=== PATIENT | female | born 1955 | race Caucasian/White ===

== ENCOUNTER → 2016-09-05 | Outpatient (CLI) | payer BC, OTHER ==
[2016-09-05 14:50] LABS: ALANINE AMINOTRANSFERASE 34 U/L (9-52); ALBUMIN 4.6 g/dL (3.5-5.0); ALKALINE PHOSPHATASE 40 U/L (38-126); ANION GAP 10 (5-19); ASPARTATE AMINO TRANSFERASE 26 U/L (14-36); BILIRUBIN,TOTAL 0.5 mg/dL (0.2-1.3); BLOOD UREA NITROGEN 17 mg/dL (7-20); CALCIUM 9.8 mg/dL (8.4-10.2); CARBON DIOXIDE 30 mmol/L (22-30); CHLORIDE 102 mmol/L (98-107); CREATININE RESULT 0.78 mg/dL (0.52-1.25); GLUCOSE 111 mg/dL (75-110); POTASSIUM 4.1 mmol/L (3.6-5.0); SODIUM 142.4 mmol/L (137-145); TOTAL PROTEIN 7.6 g/dL (6.3-8.2)
[2016-09-07 11:25] LABS: HEMATOCRIT 41.8 % (36.0-47.0); HEMOGLOBIN 14.2 g/dL (12.0-15.5); HGB HCT DIFFERENCE 0.8; MEAN CORPUSCULAR VOLUME 91 fl (80-97); RED BLOOD COUNT 4.59 10^6/uL (3.72-5.28); WHITE BLOOD COUNT 7.2 10^3/uL (4.0-10.5)
[2016-09-07 11:26] LABS: MEAN CORPUSCULAR HEMOGLOBIN 30.9 pg (27.0-33.4); RED CELL DISTRIBUTION WIDTH 12.8 % (11.5-14.0)
== END ==
LOC: LAB 13:48
PROVIDERS: ATTEND Internal Medicine
DX: D50.8 Other iron deficiency anemias (principal)
CPT/HCPCS: 36415; 80053; 82607; 82728; 83540; 83550; 85025; 85027

== ENCOUNTER → 2016-11-22 | Outpatient (CLI) | payer BC, OTHER ==
[2016-11-22 06:58] LABS: ALANINE AMINOTRANSFERASE 36 U/L (9-52); ALBUMIN 4.1 g/dL (3.5-5.0); ALKALINE PHOSPHATASE 33 U/L (38-126); ANION GAP 11 (5-19); ASPARTATE AMINO TRANSFERASE 25 U/L (14-36); BILIRUBIN,DIRECT 0.2 mg/dL (0.0-0.4); BILIRUBIN,TOTAL 0.5 mg/dL (0.2-1.3); BLOOD UREA NITROGEN 17 mg/dL (7-20); CARBON DIOXIDE 30 mmol/L (22-30); CHLORIDE 103 mmol/L (98-107); CHOLESTEROL 196.18 mg/dL (0-200); CREATININE RESULT 0.65 mg/dL (0.52-1.25); Direct HDL 53 mg/dL (>40); GLUCOSE 103 mg/dL (75-110); POTASSIUM 4.1 mmol/L (3.6-5.0); SODIUM 144.1 mmol/L (137-145); TOTAL PROTEIN 6.8 g/dL (6.3-8.2); TRIGLYCERIDES 136 mg/dL (<150)
[2016-11-22 07:10] LABS: DIRECT LDL 103 mg/dL (<100)
== END ==
LOC: LAB 06:27
PROVIDERS: ATTEND Internal Medicine
DX: E55.9 Vitamin D deficiency, unspecified (principal); I10 Essential (primary) hypertension; E78.2 Mixed hyperlipidemia; E11.9 Type 2 diabetes mellitus without complications
CPT/HCPCS: 36415; 80053; 80061; 82306; 83036

== ENCOUNTER → 2017-02-05 | Outpatient (CLI) | payer BC, OTHER ==
--- NOTE | 2017-02-13 23:37 | WOMENS IMAGING REPORT ---
EXAM DESCRIPTION: LEFT DIAGNOSTIC MAMMO W/CAD; U/S BREAST UNILAT LIMITED COMPLETED DATE/TIME: 02/05/2017 10:27 am; 02/05/2017 11:03 am REASON FOR STUDY: LUMP IN L BREAST N63; LT BREAST N63 N63 UNSPECIFIED LUMP IN BREAST COMPARISON: 01/10/2017 and 09/12/2015 and 09/10/2014. TECHNIQUE: Additional images include a true lateral view and spot compression lateral and CC views. LIMITATIONS: None. FINDINGS: BREAST: left MASSES: Small oval circumscribed nodule in the deep breast adjacent to the pectoral muscle. Due to i ts deep position, this nodule is difficult to visualize on CC imaging but is demonstrated on the orig inal exaggerated CCL mammogram. On compression views and on the original tomosynthesis images, this nodule is well-circumscribed with smooth borders. There is associated coarse calcification. CALCIFICATIONS: No new or suspicious calcifications. ARCHITECTURAL DISTORTION: None. DEVELOPING DENSITY: None. ASYMMETRY: None noted. OTHER: No other significant findings. BREAST ULTRASOUND: TECHNIQUE: Static and dynamic grayscale images acquired of the left breast in the specific areas of c linical/mammographic concern. Selected color Doppler images recorded. ELASTOGRAPHY PERFORMED: No. LIMITATIONS: None. FINDINGS: MASS: 4 x 6 x 7 mm nodule in the deep breast at the 10-11 o'clock position. This has smooth borders with no significant distal shadowing. A central calcification is demonstrated. ELASTOGRAPHY CHARACTERISTICS: Not applicable. OTHER: No other significant finding. IMPRESSION: Small circumscribed nodule in the deep breast as described which has fairly smooth borde rs with no definitive worrisome characteristics. This may be a small lymph node. On review of numer ous previous mammograms, this nodule was not demonstrated. Some of this may be due to the deep locat ion and difficulty in imaging or the nodule may have slowly developed. In any case, would recommend a short-term interval followup. BREAST DENSITY: b. There are scattered areas of fibroglandular density. BIRAD: 3 Probably benign finding. Initial short-interval follow-up suggested. RECOMMENDATION: RECOMMENDED FOLLOW UP: Birads 3: The patient will return in 6 months for follow-up i petra. SPECIFIC INTERVENTION/IMAGING/CONSULTATION RECOMMENDED:The patient will return for 6 month follow-up diagnostic mammography(tomosynthesis) and targeted breast ultrasound. COMMUNICATION:The imaging findings were not discussed with the patient. Her referring provider will b e notified of the findings. COMMENT: The patient has been notified of the results by letter per [place] requirements. Additional no tification policies are in place for contacting patient with suspicious or incomplete findings. Quality ID #225: The [employer] recommends an annual screening mammogram for women aged 40 years or over. This facility utilizes a reminder system to ensure that all patients receive reminder letters, and/or direct phone calls for appointments. This includes reminders for routine scr eening mammograms, diagnostic mammograms, or other Breast Imaging Interventions when appropriate. Th is patient will be placed in the appropriate reminder system. The [employer] (ACR) has developed recommendations for screening MRI of the breast s in certain patient populations, to be used in conjunction with mammography. Breast MRI surveillanc e may be appropriate for women with more than 20% lifetime risk of developing breast cancer as deter mined by genetic testing, significant family history of the disease, or history of mantle radiation f or Hodgkins Disease. ACR Practice Guidelines 2008. TECHNICAL DOCUMENTATION: FINDING NUMBER: (1) ASSESSMENT: (1) JOB ID: [id number] [employer]- All Rights Reserved
== END ==
LOC: WI 10:13 → EDSTATUS 15:51
PROVIDERS: ATTEND Internal Medicine
DX: N63 Unspecified lump in breast (principal)
CPT/HCPCS: 76642; G0206

== ENCOUNTER → 2017-02-28 | Outpatient (CLI) | payer BC, OTHER ==
[2017-02-28 07:07] LABS: ABSOLUTE EOSINOPHILS # (AUTO) 0.2 10^3/uL (0.0-0.6); ABSOLUTE LYMPHOCYTES (AUTO) 1.6 10^3/uL (0.5-4.7); ABSOLUTE MONOCYTES (AUTO) 0.4 10^3/uL (0.1-1.4); ABSOLUTE NEUT (AUTO) 2.6 10^3/uL (1.7-8.2); BASOPHILS % (AUTO) 0.7 % (0-2); EOSINOPHILS % (AUTO) 3.2 % (0-6); HEMATOCRIT 40.7 % (36.0-47.0); HGB HCT DIFFERENCE 1.3; LYMPHOCYTES % (AUTO) 33.9 % (13-45); MEAN CORPUSCULAR HEMOGLOBIN 30.9 pg (27.0-33.4); MEAN CORPUSCULAR HGB CONC 34.5 g/dL (32.0-36.0); MEAN CORPUSCULAR VOLUME 90 fl (80-97); MONOCYTES % (AUTO) 8.5 % (3-13); RED BLOOD COUNT 4.53 10^6/uL (3.72-5.28); RED CELL DISTRIBUTION WIDTH 13.1 % (11.5-14.0); SEGMENTED NEUTROPHILS % (AUTO) 53.7 % (42-78); WHITE BLOOD COUNT 4.8 10^3/uL (4.0-10.5)
[2017-02-28 07:31] LABS: ALANINE AMINOTRANSFERASE 37 U/L (9-52); ALBUMIN 4.2 g/dL (3.5-5.0); ALKALINE PHOSPHATASE 34 U/L (38-126); ANION GAP 10 (5-19); ASPARTATE AMINO TRANSFERASE 25 U/L (14-36); BILIRUBIN,DIRECT 0.3 mg/dL (0.0-0.4); BILIRUBIN,TOTAL 0.6 mg/dL (0.2-1.3); BLOOD UREA NITROGEN 17 mg/dL (7-20); CALCIUM 9.2 mg/dL (8.4-10.2); CARBON DIOXIDE 28 mmol/L (22-30); CHLORIDE 105 mmol/L (98-107); CREATININE RESULT 0.61 mg/dL (0.52-1.25); GLUCOSE 103 mg/dL (75-110); POTASSIUM 4.1 mmol/L (3.6-5.0); SODIUM 142.7 mmol/L (137-145); TOTAL PROTEIN 7.3 g/dL (6.3-8.2)
[2017-03-01 09:30] LABS: ADD ON TESTING BLD IN LAB ACKNOWLEDGE
== END ==
LOC: LAB 06:35
PROVIDERS: ATTEND Internal Medicine
DX: D50.8 Other iron deficiency anemias (principal)
CPT/HCPCS: 36415; 80053; 82607; 82728; 83540; 83550; 85025

== ENCOUNTER → 2017-04-30 | Outpatient (CLI) | payer BC, OTHER ==
[2017-04-30 08:27] LABS: ABSOLUTE EOSINOPHILS # (AUTO) 0.1 10^3/uL (0.0-0.6); ABSOLUTE LYMPHOCYTES (AUTO) 1.4 10^3/uL (0.5-4.7); ABSOLUTE MONOCYTES (AUTO) 0.3 10^3/uL (0.1-1.4); ABSOLUTE NEUT (AUTO) 2.4 10^3/uL (1.7-8.2); BASOPHILS % (AUTO) 0.8 % (0-2); HEMATOCRIT 40.9 % (36.0-47.0); HEMOGLOBIN 14.2 g/dL (12.0-15.5); HGB HCT DIFFERENCE 1.7; LYMPHOCYTES % (AUTO) 33.2 % (13-45); MEAN CORPUSCULAR HEMOGLOBIN 31.4 pg (27.0-33.4); MEAN CORPUSCULAR HGB CONC 34.7 g/dL (32.0-36.0); MEAN CORPUSCULAR VOLUME 91 fl (80-97); MONOCYTES % (AUTO) 7.3 % (3-13); RED BLOOD COUNT 4.52 10^6/uL (3.72-5.28); RED CELL DISTRIBUTION WIDTH 12.9 % (11.5-14.0); SEGMENTED NEUTROPHILS % (AUTO) 55.7 % (42-78); WHITE BLOOD COUNT 4.3 10^3/uL (4.0-10.5)
[2017-04-30 09:05] LABS: ALANINE AMINOTRANSFERASE 44 U/L (9-52); ALBUMIN 4.4 g/dL (3.5-5.0); ALKALINE PHOSPHATASE 34 U/L (38-126); ANION GAP 11 (5-19); ASPARTATE AMINO TRANSFERASE 31 U/L (14-36); BILIRUBIN,DIRECT 0.3 mg/dL (0.0-0.4); BILIRUBIN,TOTAL 0.5 mg/dL (0.2-1.3); BLOOD UREA NITROGEN 15 mg/dL (7-20); CALCIUM 9.4 mg/dL (8.4-10.2); CARBON DIOXIDE 35 mmol/L (22-30); CHLORIDE 101 mmol/L (98-107); CHOLESTEROL 215.98 mg/dL (0-200); CREATININE RESULT 0.72 mg/dL (0.52-1.25); Direct HDL 60 mg/dL (>40); GLUCOSE 121 mg/dL (75-110); POTASSIUM 4.7 mmol/L (3.6-5.0); SODIUM 146.5 mmol/L (137-145); TOTAL PROTEIN 7.4 g/dL (6.3-8.2); TRIGLYCERIDES 119 mg/dL (<150)
[2017-04-30 09:16] LABS: DIRECT LDL 136 mg/dL (<100)
[2017-05-01 06:39] LABS: HEPATITIS C VIRUS AB <0.1 s/co ratio (0.0-0.9)
[2017-05-01 13:11] LABS: VITAMIN D 25-HYDROXY 30.7 ng/mL (30.0-100.0)
== END ==
LOC: OD 07:09
PROVIDERS: ATTEND Internal Medicine
DX: I10 Essential (primary) hypertension (principal); E66.01 Morbid (severe) obesity due to excess calories; Z12.11 Encounter for screening for malignant neoplasm of colon; D50.0 Iron deficiency anemia secondary to blood loss (chronic); E78.2 Mixed hyperlipidemia; E55.9 Vitamin D deficiency, unspecified; Z20.89 Contact with and (suspected) exposure to other communicable diseases
CPT/HCPCS: 36415; 80053; 80061; 82043; 82272; 82306; 83036; 84443; 85025; 86803; 86804

== ENCOUNTER → 2017-07-25 | Outpatient (CLI) | payer BC, OTHER ==
--- NOTE | 2017-07-25 17:30 | WOMENS IMAGING REPORT ---
EXAM DESCRIPTION: 3D DX MAMMO LEFT UNILAT; U/S BREAST UNILAT LIMITED COMPLETED DATE/TIME: 07/25/2017 9:28 am; 07/25/2017 9:40 am REASON FOR STUDY: LEFT BREAST LUMP; LEFT BREAST N63.20 UNSPECIFIED LUMP IN THE LEFT BREAST, UNSPECI FIED QUAD COMPARISON: Multiple since 2008 TECHNIQUE: Compression magnification craniocaudal and mediolateral oblique images of the breast emilie rded using digital acquisition and breast tomosynthesis. Left breast craniocaudad, MLO, and 90 mediolateral tomosynthesis were also obtained. Left breast ultrasound was also performed. LIMITATIONS: None. FINDINGS: BREAST: Left MASSES: No suspicious masses. A tiny intramammary lymph node is present in the far upper outer quadr ant, similar compared to the exam 02/05/2017 CALCIFICATIONS: No new or suspicious calcifications. ARCHITECTURAL DISTORTION: None. DEVELOPING DENSITY: None. ASYMMETRY: None noted. OTHER: No other significant findings. Read with the assistance of CAD. .[facility] - R2 Cenova Version 1.3 .[facility] Imaging - R2 Cenova Version 1.3 .[facility] Imaging - R2 Cenova Version 2.4 .[facility] - R2 Cenova Version 2.4 .[facility] - R2 Take Up Operator Version 9.2 Ultrasound left breast: Ultrasound of the far upper outer quadrant demonstrates benign intramammary lymph nodes in the far up per outer quadrant, less than 5 mm size. These are similar compared to that the from 02/05/2017 IMPRESSION: No mammographic or sonographic evidence for malignancy left breast BREAST DENSITY: b. There are scattered areas of fibroglandular density. BIRAD: 2 Benign findings. RECOMMENDATION: RECOMMENDED FOLLOW UP: Please continue yearly bilateral screening mammography/ tomos ynthesis in January 2018 SPECIFIC INTERVENTION/IMAGING/CONSULTATION RECOMMENDED:No additional intervention/ imaging/consultati on needed at this time. COMMUNICATION:Patient notified by letter COMMENT: The patient has been notified of the results by letter per MQSA requirements. Additional no tification policies are in place for contacting patient with suspicious or incomplete findings. Quality ID #225: The [employer] recommends an annual screening mammogram for women aged 40 years or over. This facility utilizes a reminder system to ensure that all patients receive reminder letters, and/or direct phone calls for appointments. This includes reminders for routine scr eening mammograms, diagnostic mammograms, or other Breast Imaging Interventions when appropriate. Th is patient will be placed in the appropriate reminder system. The [employer] (ACR) has developed recommendations for screening MRI of the breast s in certain patient populations, to be used in conjunction with mammography. Breast MRI surveillanc e may be appropriate for women with more than 20% lifetime risk of developing breast cancer as deter mined by genetic testing, significant family history of the disease, or history of mantle radiation f or Hodgkins Disease. ACR Practice Guidelines 2008. DBT Technology DBT is a type of tomographic mammography. With conventional mammography, overlapping breast tissue ma y make lesions difficult to detect, even with good compression. DBT uses an x-ray tube that rotates a round the breast, taking images at different angles. These images are then combined to create thin sl ices of the breast that the radiologist can view as a 3D reconstruction. The [employer] unit can perform full-field digital mammograms (2D imaging); or DBT (3D imaging); or both, in a combination mode that quickly performs both the mammogram and the tomosynthesis scan while the breast is still compressed. PQRS 6045F: Fluoroscopic imaging is not utilized for breast tomosynthesis. TECHNICAL DOCUMENTATION: FINDING NUMBER: (1) ASSESSMENT: (1) JOB ID: [id number] [employer]- All Rights Reserved
--- NOTE | 2017-07-25 17:30 | WOMENS IMAGING REPORT ---
EXAM DESCRIPTION: 3D DX MAMMO LEFT UNILAT; U/S BREAST UNILAT LIMITED COMPLETED DATE/TIME: 07/25/2017 9:28 am; 07/25/2017 9:40 am REASON FOR STUDY: LEFT BREAST LUMP; LEFT BREAST N63.20 UNSPECIFIED LUMP IN THE LEFT BREAST, UNSPECI FIED QUAD COMPARISON: Multiple since 2008 TECHNIQUE: Compression magnification craniocaudal and mediolateral oblique images of the breast emilie rded using digital acquisition and breast tomosynthesis. Left breast craniocaudad, MLO, and 90 mediolateral tomosynthesis were also obtained. Left breast ultrasound was also performed. LIMITATIONS: None. FINDINGS: BREAST: Left MASSES: No suspicious masses. A tiny intramammary lymph node is present in the far upper outer quadr ant, similar compared to the exam 02/05/2017 CALCIFICATIONS: No new or suspicious calcifications. ARCHITECTURAL DISTORTION: None. DEVELOPING DENSITY: None. ASYMMETRY: None noted. OTHER: No other significant findings. Read with the assistance of CAD. .[facility] - R2 Cenova Version 1.3 .[facility] Imaging - R2 Cenova Version 1.[address] .[facility] Imaging - R2 Cenova Version 2.4 .[facility] [place] - R2 Cenova Version 2.4 .[facility] - R2 Spice Cleaner Version 9.2 Ultrasound left breast: Ultrasound of the far upper outer quadrant demonstrates benign intramammary lymph nodes in the far up per outer quadrant, less than 5 mm size. These are similar compared to that the from 02/05/2017 IMPRESSION: No mammographic or sonographic evidence for malignancy left breast BREAST DENSITY: b. There are scattered areas of fibroglandular density. BIRAD: 2 Benign findings. RECOMMENDATION: RECOMMENDED FOLLOW UP: Please continue yearly bilateral screening mammography/ tomos ynthesis in January 2018 SPECIFIC INTERVENTION/IMAGING/CONSULTATION RECOMMENDED:No additional intervention/ imaging/consultati on needed at this time. COMMUNICATION:Patient notified by letter COMMENT: The patient has been notified of the results by letter per MQSA requirements. Additional no tification policies are in place for contacting patient with suspicious or incomplete findings. Quality ID #225: The [employer] recommends an annual screening mammogram for women aged 40 years or over. This facility utilizes a reminder system to ensure that all patients receive reminder letters, and/or direct phone calls for appointments. This includes reminders for routine scr eening mammograms, diagnostic mammograms, or other Breast Imaging Interventions when appropriate. Th is patient will be placed in the appropriate reminder system. The [employer] (ACR) has developed recommendations for screening MRI of the breast s in certain patient populations, to be used in conjunction with mammography. Breast MRI surveillanc e may be appropriate for women with more than 20% lifetime risk of developing breast cancer as deter mined by genetic testing, significant family history of the disease, or history of mantle radiation f or Hodgkins Disease. ACR Practice Guidelines 2008. DBT Technology DBT is a type of tomographic mammography. With conventional mammography, overlapping breast tissue ma y make lesions difficult to detect, even with good compression. DBT uses an x-ray tube that rotates a round the breast, taking images at different angles. These images are then combined to create thin sl ices of the breast that the radiologist can view as a 3D reconstruction. The [employer] unit can perform full-field digital mammograms (2D imaging); or DBT (3D imaging); or both, in a combination mode that quickly performs both the mammogram and the tomosynthesis scan while the breast is still compressed. PQRS 6045F: Fluoroscopic imaging is not utilized for breast tomosynthesis. TECHNICAL DOCUMENTATION: FINDING NUMBER: (1) ASSESSMENT: (1) JOB ID: [id number] [employer]- All Rights Reserved
== END ==
LOC: WI 08:40
PROVIDERS: ATTEND Internal Medicine
DX: N63.20 Unspecified lump in the left breast, unspecified quadrant (principal)
CPT/HCPCS: 76642

== ENCOUNTER → 2017-08-05 | Outpatient (CLI) | payer BC, OTHER ==
[2017-08-05 06:58] LABS: ALANINE AMINOTRANSFERASE 34 U/L (9-52); ALBUMIN 4.3 g/dL (3.5-5.0); ALKALINE PHOSPHATASE 31 U/L (38-126); ANION GAP 10 (5-19); ASPARTATE AMINO TRANSFERASE 24 U/L (14-36); BILIRUBIN,DIRECT 0.2 mg/dL (0.0-0.4); BILIRUBIN,TOTAL 0.3 mg/dL (0.2-1.3); BLOOD UREA NITROGEN 13 mg/dL (7-20); CALCIUM 9.2 mg/dL (8.4-10.2); CARBON DIOXIDE 30 mmol/L (22-30); CHLORIDE 103 mmol/L (98-107); CHOLESTEROL 206.77 mg/dL (0-200); GLUCOSE 117 mg/dL (75-110); SODIUM 142.9 mmol/L (137-145); TOTAL PROTEIN 7.2 g/dL (6.3-8.2); TRIGLYCERIDES 86 mg/dL (<150)
[2017-08-05 07:09] LABS: DIRECT LDL 131 mg/dL (<100)
== END ==
LOC: LAB 06:21
PROVIDERS: ATTEND Internal Medicine
DX: E78.2 Mixed hyperlipidemia (principal)
CPT/HCPCS: 36415; 80053; 80061

== ENCOUNTER → 2017-08-29 | Outpatient (CLI) | payer BC, OTHER ==
[2017-08-29 08:47] LABS: ABSOLUTE EOSINOPHILS # (AUTO) 0.2 10^3/uL (0.0-0.6); ABSOLUTE LYMPHOCYTES (AUTO) 1.8 10^3/uL (0.5-4.7); ABSOLUTE MONOCYTES (AUTO) 0.4 10^3/uL (0.1-1.4); ABSOLUTE NEUT (AUTO) 2.2 10^3/uL (1.7-8.2); BASOPHILS % (AUTO) 0.4 % (0-2); HEMATOCRIT 40.7 % (36.0-47.0); LYMPHOCYTES % (AUTO) 38.9 % (13-45); MEAN CORPUSCULAR HEMOGLOBIN 30.4 pg (27.0-33.4); MEAN CORPUSCULAR HGB CONC 34.5 g/dL (32.0-36.0); MEAN CORPUSCULAR VOLUME 88 fl (80-97); MONOCYTES % (AUTO) 7.9 % (3-13); PLATELET COUNT 225 10^3/uL (150-450); RED CELL DISTRIBUTION WIDTH 12.6 % (11.5-14.0); SEGMENTED NEUTROPHILS % (AUTO) 48.8 % (42-78); TOTAL CELLS COUNTED % (AUTO) 100 %; WHITE BLOOD COUNT 4.5 10^3/uL (4.0-10.5)
[2017-08-29 09:09] LABS: ALANINE AMINOTRANSFERASE 39 U/L (9-52); ALBUMIN 4.3 g/dL (3.5-5.0); ALKALINE PHOSPHATASE 28 U/L (38-126); ANION GAP 9 (5-19); ASPARTATE AMINO TRANSFERASE 33 U/L (14-36); BILIRUBIN,DIRECT 0.1 mg/dL (0.0-0.4); BILIRUBIN,TOTAL 0.2 mg/dL (0.2-1.3); BLOOD UREA NITROGEN 13 mg/dL (7-20); CALCIUM 9.1 mg/dL (8.4-10.2); CARBON DIOXIDE 32 mmol/L (22-30); CHLORIDE 103 mmol/L (98-107); GLUCOSE 95 mg/dL (75-110); IRON(TIBC) 100.6 ug/dL (37-170); POTASSIUM 4.5 mmol/L (3.6-5.0); TOTAL PROTEIN 7.1 g/dL (6.3-8.2)
== END ==
LOC: OD 07:37
PROVIDERS: ATTEND Internal Medicine
DX: D50.8 Other iron deficiency anemias (principal)
CPT/HCPCS: 36415; 80053; 82607; 82728; 83540; 83550; 85025

== ENCOUNTER → 2018-01-29 | Outpatient (CLI) | payer BC, OTHER ==
[2018-01-29 08:21] LABS: ABSOLUTE EOSINOPHILS # (AUTO) 0.2 10^3/uL (0.0-0.6); ABSOLUTE LYMPHOCYTES (AUTO) 1.6 10^3/uL (0.5-4.7); ABSOLUTE MONOCYTES (AUTO) 0.4 10^3/uL (0.1-1.4); ABSOLUTE NEUT (AUTO) 2.7 10^3/uL (1.7-8.2); BASOPHILS % (AUTO) 0.6 % (0-2); EOSINOPHILS % (AUTO) 3.2 % (0-6); HEMATOCRIT 40.9 % (36.0-47.0); MEAN CORPUSCULAR HEMOGLOBIN 30.9 pg (27.0-33.4); MEAN CORPUSCULAR HGB CONC 34.3 g/dL (32.0-36.0); MEAN CORPUSCULAR VOLUME 90 fl (80-97); MONOCYTES % (AUTO) 8.6 % (3-13); PLATELET COUNT 207 10^3/uL (150-450); RED BLOOD COUNT 4.55 10^6/uL (3.72-5.28); SEGMENTED NEUTROPHILS % (AUTO) 54.6 % (42-78); TOTAL CELLS COUNTED % (AUTO) 100 %; WHITE BLOOD COUNT 4.9 10^3/uL (4.0-10.5)
[2018-01-29 08:39] LABS: ALANINE AMINOTRANSFERASE 30 U/L (9-52); ALKALINE PHOSPHATASE 28 U/L (38-126); ANION GAP 9 (5-19); ASPARTATE AMINO TRANSFERASE 25 U/L (14-36); BILIRUBIN,DIRECT 0.2 mg/dL (0.0-0.4); BILIRUBIN,TOTAL 0.5 mg/dL (0.2-1.3); BLOOD UREA NITROGEN 12 mg/dL (7-20); CALCIUM 8.8 mg/dL (8.4-10.2); CARBON DIOXIDE 33 mmol/L (22-30); CHLORIDE 105 mmol/L (98-107); GLUCOSE 112 mg/dL (75-110); POTASSIUM 4.5 mmol/L (3.6-5.0); SODIUM 146.6 mmol/L (137-145); TRIGLYCERIDES 85 mg/dL (<150)
[2018-01-29 08:50] LABS: DIRECT LDL 113 mg/dL (<100)
== END ==
LOC: OD 07:35
PROVIDERS: ATTEND Internal Medicine
DX: E78.2 Mixed hyperlipidemia (principal); E11.9 Type 2 diabetes mellitus without complications; D50.0 Iron deficiency anemia secondary to blood loss (chronic)
CPT/HCPCS: 36415; 80053; 80061; 82728; 83036; 85025

== ENCOUNTER 2018-04-17 09:18 | Day surgery (SDC) | payer BC, OTHER ==
[~2018-04-17 09:18] MED LIST: CHONDR SU A NA/HYALUR INTRAOC KIT (SURGICARE) ONE; EPINEPHRINE INJ/PF 1 MG/1 ML AMPULE ONE; KETOROLAC TROMETHAMINE 0.45% 4 DROP/0.4 ML DROPERETTE OD PRN; LIDOCAINE 1%/PHENYLEPHRINE 1.5% 1 ML VIAL ONE
[2018-04-17] MEDS: TETRACAINE HCL 0.5% OPH SOLN 4 ML OD PRN ×3 (09:41→10:14)
[2018-04-17] MEDS: TROPICAMIDE 1% OPH SOLN 3 ML OD PRN ×3 (09:42→10:07)
[2018-04-17] MEDS: CYCLOPENTOLATE 0.2%/PHENYLEPHRINE 1% OPH SOLN 2 ML OD PRN ×3 (09:42→10:07)
[2018-04-17] MEDS: BESIFLOXACIN HCL 0.6% OPH SUSP 5 ML BOTTLE OD PRN ×4 (09:43→10:33)
[2018-04-17] MEDS ORDERED: MIDAZOLAM 2 MG/2 ML INJ ONE (09:56)
[2018-04-17] MEDS ORDERED: FENTANYL CITRATE INJ/PF 100 MCG/2 ML AMPUL ONE (09:56)
--- NOTE | 2018-04-17 19:36 | [facility] DISCHARGE SUMMARY E ---
[facility] Discharge Summary NAME: ALFREDO MORELAND AGE: 62Y ADMITTED: 04/17/2018 DISCHARGED: The patient is a 62-year-old female who underwent cataract extraction of the right eye. DIAGNOSIS: Cataract, right eye. She underwent surgery because she had narrow angles and she also has trouble seeing the computer. DISCHARGE INSTRUCTIONS: She should be on a regular diet. No bending at the waist, no heavy lifting. She should use her Besivance, Ilevro, and Durezol at 3:00 p.m. and 8:00 p.m. and sleep with a rigid shield. I will see her for her 1-day postoperative tomorrow. DICTATING PHYSICIAN: ELVIA DENNIS M.D. [id number] PHY#: [id number] ID: [id number] JOB#: [id number] ACCT: [id number] cc:ELVIA DENNIS M.D. >
--- NOTE | 2018-04-17 19:36 | [facility] OPERATIVE REPORT E ---
[facility] Operative Report NAME: ALFREDO MORELAND AGE: 62Y DATE OF SURGERY: 04/17/2018 ROOM: PREOPERATIVE DIAGNOSIS: CATARACT, RIGHT EYE. POSTOPERATIVE DIAGNOSIS: CATARACT, RIGHT EYE. OPERATION: Cataract extraction with insertion of an IOL of the right eye. SURGEON: ELVIA DENNIS M.D. ANESTHESIA: Topical. PROCEDURE: After obtaining appropriate consent, the patient's right eye was prepped and draped in sterile fashion as well as the surgeon in a sterile manner and cataract surgery was started. First a paracentesis blade was used to make a side-port incision. Viscoelastic was used to inflate the anterior chamber. Next a 2.4 mm incision was made with a 2.4 mm blade, clear corneal temporally. A continuous capsulorrhexis was made using a cystotome and Utrata forceps. Following this hydrodissection was carried out to make the lens fully loose and mobile and it was rotated 90 degrees. Following this, a xzljpk-zmx-prvaeiy technique was used to phacoemulsify the lens with a CDE of 5.20. The remaining cortex was removed with irrigation/aspiration. Provisc was instilled into the capsular bag to inflate the bag. A SN60WF, 27.5 diopter lens was placed. The remaining viscoelastic material was removed with irrigation/aspiration. Following this, the incision was found to be watertight. Besivance was instilled into the eye and a protective shield was placed over the eye. The patient returned to the postoperative recovery in stable condition. DICTATING PHYSICIAN: ELVIA DENNIS M.D. [id number] PHY#: [id number] ID: [id number] JOB#: [id number] ACCT: [id number] cc:ELVIA DENNIS M.D. >
== END 2018-04-17 11:14 | disposition home or self-care (01) ==
LOC: SC 09:18
PROVIDERS: ATTEND Internal Medicine
DX: H25.11 Age-related nuclear cataract, right eye (principal); I10 Essential (primary) hypertension; K21.9 Gastro-esophageal reflux disease without esophagitis; Z79.899 Other long term (current) drug therapy
CPT/HCPCS: 66984; V2632; J2250; J3490 ×2; J0171; J3010; J2370; 142

== ENCOUNTER → 2018-07-30 | Outpatient (CLI) | payer BC, OTHER ==
[2018-07-30 10:05] LABS: ALANINE AMINOTRANSFERASE 27 U/L (9-52); ALBUMIN 4.3 g/dL (3.5-5.0); ALKALINE PHOSPHATASE 32 U/L (38-126); ANION GAP 8 (5-19); ASPARTATE AMINO TRANSFERASE 28 U/L (14-36); BILIRUBIN,DIRECT 0.3 mg/dL (0.0-0.4); BILIRUBIN,TOTAL 0.4 mg/dL (0.2-1.3); BLOOD UREA NITROGEN 17 mg/dL (7-20); CALCIUM 9.2 mg/dL (8.4-10.2); CARBON DIOXIDE 31 mmol/L (22-30); CHLORIDE 103 mmol/L (98-107); CHOLESTEROL 178.84 mg/dL (0-200); GLUCOSE 101 mg/dL (75-110); POTASSIUM 4.3 mmol/L (3.6-5.0); SODIUM 142.1 mmol/L (137-145); TOTAL PROTEIN 7.1 g/dL (6.3-8.2); TRIGLYCERIDES 77 mg/dL (<150)
[2018-07-30 10:15] LABS: DIRECT LDL 108 mg/dL (<100)
[2018-07-31 13:39] LABS: CREATININE URINE 134.5 mg/dL (Not Estab.); MICROALBUMIN URINE <3.0 ug/mL (Not Estab.)
== END ==
LOC: OD 08:18
PROVIDERS: ATTEND Internal Medicine
DX: E55.9 Vitamin D deficiency, unspecified (principal); E11.9 Type 2 diabetes mellitus without complications; E78.2 Mixed hyperlipidemia
CPT/HCPCS: 36415; 80053; 80061; 82043; 82306; 82570; 83036

== ENCOUNTER → 2019-03-24 | Outpatient (CLI) | payer BC, OTHER ==
--- NOTE | 2019-03-24 09:37 | WOMENS IMAGING REPORT ---
EXAM DESCRIPTION: BONE DENSITY HIP/SPINE COMPLETED DATE/TIME: 03/24/2019 9:22 am REASON FOR STUDY: M81.0 AGE RELATED OSTEOPOROSIS M54.16 RADICULOPATHY, LUMBAR REGION M81.0 AGE-REL ATED OSTEOPOROSIS W/O CURRENT PATHOLOGICAL FRAC COMPARISON: 09/12/2015 TECHNIQUE: Dual-Energy X-ray Absorptiometry (DEXA) of the AP Spine and Hip. LIMITATIONS: None. FINDINGS: LUMBAR SPINE: The bone mineral density (BMD) measured from L1-L4 in the AP projection correlates with a T-score of 0.7, which is normal as defined by the World Health Organization. HIP: The bone mineral density (BMD) measured in the left hip correlates with a T-score of -0.6, which is n ormal as defined by the World Health Organization. IMPRESSION: 1. LUMBAR SPINE: NORMAL. 2. HIP: NORMAL. COMMENT: The World Health Organization defines low BMD as follows: T-score: Normal: Greater than -1.0 Osteopenia: Between -1.0 and -2.5 Osteoporosis: Less than -2.5 without fractures Established osteoporosis: Less than -2.5 with fractures In general, you may wish to consider: Diagnosis Treatment Follow-up DEXA Normal BMD Prevention 2-3 years Osteopenia Prevention/Therapy 1-2 years Osteoporosis Therapy Yearly TECHNICAL DOCUMENTATION: JOB ID: [id number] [employer]- All Rights Reserved Reading location - IP/workstation name: [email or web address]
== END ==
LOC: WI 08:40
PROVIDERS: ATTEND Orthopaedic Surgery
DX: M81.0 Age-related osteoporosis without current pathological fracture (principal)
CPT/HCPCS: 77080

== ENCOUNTER 2019-08-05 05:22 | Inpatient (IN) | payer BC, OTHER ==
[2019-07-31 09:33] LABS: ABSOLUTE EOSINOPHILS # (AUTO) 0.1 10^3/uL (0.0-0.6); ABSOLUTE LYMPHOCYTES (AUTO) 1.9 10^3/uL (0.5-4.7); ABSOLUTE MONOCYTES (AUTO) 0.5 10^3/uL (0.1-1.4); ABSOLUTE NEUT (AUTO) 3.2 10^3/uL (1.7-8.2); BASOPHILS % (AUTO) 0.5 % (0-2); EOSINOPHILS % (AUTO) 2.2 % (0-6); HEMATOCRIT 41.7 % (36.0-47.0); HEMOGLOBIN 14.4 g/dL (12.0-15.5); LYMPHOCYTES % (AUTO) 32.7 % (13-45); MEAN CORPUSCULAR HEMOGLOBIN 31.6 pg (27.0-33.4); MEAN CORPUSCULAR HGB CONC 34.6 g/dL (32.0-36.0); MEAN CORPUSCULAR VOLUME 91 fl (80-97); MONOCYTES % (AUTO) 9.2 % (3-13); PLATELET COUNT 222 10^3/uL (150-450); RED BLOOD COUNT 4.57 10^6/uL (3.72-5.28); RED CELL DISTRIBUTION WIDTH 12.6 % (11.5-14.0); SEGMENTED NEUTROPHILS % (AUTO) 55.4 % (42-78); TOTAL CELLS COUNTED % (AUTO) 100 %; WHITE BLOOD COUNT 5.7 10^3/uL (4.0-10.5)
[2019-07-31 09:35] LABS: APPEARANCE,URINE SLIGHTLY-CLOUDY; BILIRUBIN,URINE NEGATIVE (NEGATIVE); COLOR,URINE YELLOW; GLUCOSE, URINE NEGATIVE (NEGATIVE); KETONES,URINE NEGATIVE (NEGATIVE); LEUKOCYTE ESTERASE,URINE NEGATIVE (NEGATIVE); NITRITE,URINE NEGATIVE (NEGATIVE); PROTEIN,URINE NEGATIVE (NEGATIVE); URINE SPECIFIC GRAVITY 1.015; UROBILINOGEN,URINE NEGATIVE mg/dL (<2.0)
[2019-07-31 09:55] LABS: ANION GAP 9 (5-19); BLOOD UREA NITROGEN 16 mg/dL (7-20); CALCIUM 9.5 mg/dL (8.4-10.2); CARBON DIOXIDE 35 mmol/L (22-30); CHLORIDE 96 mmol/L (98-107); GLUCOSE 102 mg/dL (75-110); POTASSIUM 3.9 mmol/L (3.6-5.0)
[~2019-08-05 05:22] MED LIST changes: +CEFAZOLIN SODIUM 2 GM in DEXTROSE 5%-WATER 100 ML IV PRN; -CHONDR SU A NA/HYALUR INTRAOC KIT (SURGICARE) ONE; -EPINEPHRINE INJ/PF 1 MG/1 ML AMPULE ONE; -KETOROLAC TROMETHAMINE 0.45% 4 DROP/0.4 ML DROPERETTE OD PRN; +LACTATED RINGERS 1000 ML IV PRN; +LIDOCAINE 0.5% INJ-PF (5 MG/ML) 50 ML SDV SUBCUT PRN; -LIDOCAINE 1%/PHENYLEPHRINE 1.5% 1 ML VIAL ONE
[2019-08-05] MEDS ORDERED: FENTANYL CITRATE INJ/PF 250 MCG/5 ML AMPULE ONE (06:55)
[2019-08-05] MEDS ORDERED: HYDROMORPHONE HCL INJ/PF 2 MG/ML AMPULE ONE ×2 (06:55→14:49)
[2019-08-05] MEDS ORDERED: LIDOCAINE 2% INJ-PF (20 MG/ML) 10 ML AMPUL ONE (06:55)
[2019-08-05] MEDS ORDERED: ONDANSETRON HCL INJ/PF 4 MG/2 ML SDV ONE (06:55)
[2019-08-05] MEDS ORDERED: PROPOFOL INJ 200 MG/20 ML VIAL IV ONE ×2 (06:56→07:12)
[2019-08-05] MEDS ORDERED: DEXAMETHASONE SOD PHOSPHATE INJ 4 MG/1 ML VIAL ONE (06:56)
[2019-08-05] MEDS ORDERED: BACITRACIN INJ 50,000 UNIT VIAL ONE (07:08)
[2019-08-05] MEDS ORDERED: MIDAZOLAM 2 MG/2 ML INJ ONE (07:32)
[2019-08-05] MEDS ORDERED: FENTANYL CITRATE INJ/PF 100 MCG/2 ML AMPUL ONE (08:51)
[2019-08-05] MEDS ORDERED: HEPARIN SOD (PORCINE) 1,000 UNIT/ML 10 ML VIAL ONE (09:23)
[2019-08-05] MEDS ORDERED: BUPIVACAINE HCL 0.5 % INJ/PF 30 ML SDV ONE (11:34)
[2019-08-05] MEDS ORDERED: BUPIVACAINE INJ/PF LIPOSOME/PF 266 MG/20 ML SDV ONE (11:35)
[2019-08-05] MEDS ORDERED: CEFAZOLIN INJ 1 GM VIAL ONE (12:23)
[2019-08-05] MEDS ORDERED: POTASSI CL 20 MEQ/D5-1/2NS 1L 1,000 ML IV PRN (13:48)
[2019-08-05] MEDS ORDERED: METHOCARBAMOL INJ/PF 1000 MG/10 ML SDV IV PRN (13:51)
[2019-08-05] MEDS ORDERED: OXYCODONE-ACETAMINOPHEN 5-325 MG TABLET PO PRN ×2 (13:56)
[2019-08-05] MEDS ORDERED: ACETAMINOPHEN 325 MG TABLET PO PRN (13:56)
[2019-08-05] MEDS ORDERED: MORPHINE SULFATE 10 MG/ML INJ IV PRN (13:56)
[2019-08-05] MEDS ORDERED: DIPHENHYDRAMINE HCL 50 MG/ML VIAL IV PRN (13:56)
[2019-08-05] MEDS ORDERED: ONDANSETRON HCL INJ/PF 4 MG/2 ML SDV IV PRN (13:56)
[2019-08-05] MEDS ORDERED: ONDANSETRON 4 MG TAB.RAPDIS PO PRN (13:56)
[2019-08-05] MEDS ORDERED: MEPERIDINE HCL/PF INJ 25 MG/1 ML DISP.SYRIN IV PRN (13:56)
[2019-08-05] MEDS ORDERED: PROMETHAZINE HCL INJ 25 MG/1 ML VIAL IV PRN (13:56)
[2019-08-05] MEDS ORDERED: MAGNESIUM HYDROXIDE SUSP 30 ML UDCUP PO PRN (13:56)
[2019-08-05] MEDS ORDERED: FENTANYL CITRATE INJ/PF 100 MCG/2 ML AMPUL IV PRN ×3 (13:56)
--- NOTE | 2019-08-05 14:10 | Operative Report ---
Operative Report DATE OF SURGERY: 08/05/19 PREOPERATIVE DIAGNOSIS: Lumbar stenosis with neurogenic Claudication L3-4. Spo ndylolesthesis L3-4 and L4-5. Back Pain. L3 and L4 Radiculitis OPERATION: Lumbar L4-5 and L3-4 Interbody Fusion and Instrumentation and Interbody Spacer L3-4 and L4-5 and Left Iliac Crest Aspiration for Bone Marrow Concentration and Decompression L3-4 and Left L3-4 Microdiscectomy SURGEON: ROSY QUEZADA 1ST DINKEY MOTOR OPERATOR: MARCELLUS SERRANO ANESTHESIA: GA COMPLICATIONS: None ESTIMATED BLOOD LOSS: 700 cc and 300 cc cell saver given back INTRAOPERATIVE FINDINGS: Hardware utilized is Mazor X Solera Voyager screws 6.5 x 45 mm screws x6 and 80 mm ryan on the left and a 5 mm ryan on the right. Body spacers utilized where the spineology interbody mesh spacers 22 mm spacer at L4- 5 and 22 mm spacer at L3-4. PROCEDURE: The patient was brought into the room and placed under general anesthesia the patient received 2 g of Ancef which were redosed at 4 hours intraoperatively. The patient had a Manriquez catheter placed preoperatively and had neuro monitoring leads placed as well. Patient had SCDs and a warming blanket placed on him after being placed in the prone position and after having had a Manriquez catheter placed which will be kept overnight. After being positioned in the prone position on the Gurpreet table C-arm fluoroscopy is obtained in lateral position to saulo the L3-4 and L4-5. After marking those levels Wiltsie incisions are marked on the right and the left side. After obtaining baseline SSEP and cranial motor testing and after carrying out the appropriate timeout the left iliac crest is aspirated from 3 different sites a total of 60 cc of bone marrow aspirate are concentrated. I ntraoperative robotic navigation using the [employer] Wenwen system was utilized and after obtaining verification imaging screws were positioned into L3 bilaterally and L4 bilaterally and L5 bilaterally. After that on the left side cannulas were introduced using robotic navigation into the disc space at L3-4 and L4-5 and a complete discectomy was performed at both levels. The appropriate size spacers are introduced at L3-4 and L4-5 and filled with bone marrow aspirate concentrate and cadaver bone and good correction of the collapse of the disc space height was obtained at both levels after that attention is plates on placing the appropriate length rods on the right and the left. The appropriate length ryan was determined to be 80 mm on the left and 75 mm on the right. C-arm fluoroscopy was obtained in AP and lateral position to visualize the interbody spacers and the screws and the rods found to be in good position. Craniomotor testing and free running EMGs and SSEP testing utilized throughout the case to verify no nerve irritation. Attention was then paid to the L3-4 level where the skin is marked under C-arm fluoroscopy and a midline incision was carried down through the skin running into the top of the old laminectomy incision that she had. Dissection was carried down to the lamina of L3 and L4 in the posterior interspace is marked with a [place] in position is verified using lateral C-arm fluoroscopy. Upon verification of that the spinous process of L3 is resected. And the microscope was brought in under the microscope and through the assistance of generous partial laminectomies performed using the bur and the Kerrisons there was noted to be significant ligamentum flavum hypertrophy and significant central stenosis and significant large facet spurs which were resected piecemeal and the dura was then retracted medially under the microscope and the disc space on the left side is identified an annulotomy was performed and many small large and piece of disc were resected and the foramen is decompressed as well. After that a Valsalva maneuver is performed noting no cerebrospinal fluid leakage or epidural bleeders the wounds irrigated with a liter of bacitracin irrigation. The portals for the screws are then closed with 2-0 Vicryl and Dermabond. After that the laminectomy incision is irrigated with copious amounts of irrigation and the fascia was reapproximated with 0 Vicryl subcu with a 2-0 Vicryl and skin with a running subcuticular 3-0 Monocryl closure. Please note that the deep and superficial soft tissues are infiltrated with 0.5% Marcaine plain mixed with 1.3% Exparel injected into the deep and superficial soft tissues. Please note that bone marrow aspiration CPT code 03350 utilized for the graft is better choice over structural bone harvesting from the iliac crest which has 20% chronic postoperative iliac crest and hip pain and also aspiration is less expensive. Both techniques have similar fusion rates for one level instrumented fusion with interbody spacer.
[2019-08-05] MEDS ORDERED: ERGOCALCIFEROL 1.25 MG PO SCH (14:15)
[2019-08-05] MEDS ORDERED: VECURONIUM BROMIDE INJ 10 MG VIAL IV ONE (14:44)
[2019-08-05] MEDS ORDERED: ROCURONIUM BROMIDE INJ 50 MG/5 ML VIAL IV ONE (14:44)
--- NOTE | 2019-08-05 14:59 | RADIOLOGY REPORT (SQ) ---
EXAM DESCRIPTION: L SPINE 2 VIEWS; NO CHG FLUORO COMPLETED DATE/TIME: 08/05/2019 2:38 pm REASON FOR STUDY: LUMBAR FUSION / LAMINECTOMY ASST WITH FLUORO IN OR M54.5 LOW BACK PAIN M48.061 S JOHN STENOSIS, LUMBAR REGION WITHOUT NEUROGENIC CL M54.16 RADICULOPATHY, LUMBAR REGION COMPARISON: None. FLUOROSCOPY TIME: 2.2 MINUTES SPOT images saved to PACS. TECHNIQUE: Intra-operative images acquired during surgical procedure to evaluate progress. NUMBER OF IMAGES: 9 LIMITATIONS: None. FINDINGS: Fluoroscopy was provided for intraoperative procedure. Please refer to the operative repo rt for further discussion. IMPRESSION: IMAGE(S) OBTAINED DURING PROCEDURE. COMMENT: Quality ID 145: Final reports for procedures using fluoroscopy that document radiation exp osure indices, or exposure time and number of fluorographic images (if radiation exposure indices are not available) Please consult full operative report of the attending physician for description of the procedure. TECHNICAL DOCUMENTATION: JOB ID: [id number] [employer]- All Rights Reserved Reading location - IP/workstation name: [email or web address]
--- NOTE | 2019-08-05 14:59 | RADIOLOGY REPORT (SQ) ---
EXAM DESCRIPTION: L SPINE 2 VIEWS; NO CHG FLUORO COMPLETED DATE/TIME: 08/05/2019 2:38 pm REASON FOR STUDY: LUMBAR FUSION / LAMINECTOMY ASST WITH FLUORO IN OR M54.5 LOW BACK PAIN M48.061 S JOHN STENOSIS, LUMBAR REGION WITHOUT NEUROGENIC CL M54.16 RADICULOPATHY, LUMBAR REGION COMPARISON: None. FLUOROSCOPY TIME: 2.2 MINUTES SPOT images saved to PACS. TECHNIQUE: Intra-operative images acquired during surgical procedure to evaluate progress. NUMBER OF IMAGES: 9 LIMITATIONS: None. FINDINGS: Fluoroscopy was provided for intraoperative procedure. Please refer to the operative repo rt for further discussion. IMPRESSION: IMAGE(S) OBTAINED DURING PROCEDURE. COMMENT: Quality ID 145: Final reports for procedures using fluoroscopy that document radiation exp osure indices, or exposure time and number of fluorographic images (if radiation exposure indices are not available) Please consult full operative report of the attending physician for description of the procedure. TECHNICAL DOCUMENTATION: JOB ID: [id number] [employer]- All Rights Reserved Reading location - IP/workstation name: [email or web address]
[2019-08-05] MEDS: PREGABALIN 50 MG CAPSULE PO SCH (17:50)
[2019-08-05] MEDS: DOCUSATE SODIUM 100 MG CAPSULE PO SCH (17:50)
[2019-08-05] MEDS: HYDROCODONE/ACETAMINOPHEN 10-325 MG TABLET PO PRN (17:50)
[2019-08-05] MEDS: OXYCODONE-ACETAMINOPHEN 5-325 MG TABLET PO PRN (20:16)
[2019-08-06] MEDS: MORPHINE SULFATE 10 MG/ML INJ IV PRN ×4 (00:02→18:19)
[2019-08-06] MEDS: HYDROCODONE/ACETAMINOPHEN 10-325 MG TABLET PO PRN ×2 (02:07→14:54)
[2019-08-06] MEDS: OXYCODONE-ACETAMINOPHEN 5-325 MG TABLET PO PRN ×2 (03:34→21:44)
[2019-08-06 05:14] LABS: TOTAL CELLS COUNTED % (AUTO) 100 %
[2019-08-06 05:22] LABS: ABSOLUTE LYMPHOCYTES (AUTO) 1.3 10^3/uL (0.5-4.7); ABSOLUTE MONOCYTES (AUTO) 0.8 10^3/uL (0.1-1.4); ABSOLUTE NEUT (AUTO) 6.7 10^3/uL (1.7-8.2); BASOPHILS % (AUTO) 0.2 % (0-2); HEMATOCRIT 37.1 % (36.0-47.0); LYMPHOCYTES % (AUTO) 14.2 % (13-45); MEAN CORPUSCULAR HEMOGLOBIN 31.9 pg (27.0-33.4); MEAN CORPUSCULAR VOLUME 91 fl (80-97); PLATELET COUNT 201 10^3/uL (150-450); RED BLOOD COUNT 4.07 10^6/uL (3.72-5.28); RED CELL DISTRIBUTION WIDTH 12.8 % (11.5-14.0); SEGMENTED NEUTROPHILS % (AUTO) 76.6 % (42-78); WHITE BLOOD COUNT 8.8 10^3/uL (4.0-10.5)
--- NOTE | 2019-08-06 07:20 | PDOC PROGRESS REPORT ---
Subjective Progress Note for:: 08/06/19 Reason For Visit: M54.5 LOW BACK PAIN 64-year-old white female now postop day 1 status post lumbar fusion. Patient complaining of pain this morning but otherwise otherwise doing well. Patient is looking forward to getting out of bed today. Physical Exam Vital Signs: Temp Pulse Resp BP Pulse Ox 37.0 C 97 17 143/86 H 96 08/05/19 23:59 08/05/19 23:59 08/05/19 23:59 08/05/19 23:59 08/06/19 00:59 Intake & Output 08/05/19 08/06/19 08/07/19 06:59 06:59 06:59 Intake Total 0 4350 Output Total 2650 Balance 0 1700 Weight 76.2 kg Physical Exam: Middle-aged white female lying in a hospital bed. Patient is alert, oriented, and appropriate. General appearance: PRESENT: mild distress Head exam: PRESENT: normocephalic Respiratory exam: PRESENT: unlabored Cardiovascular exam: PRESENT: RRR Pulses: PRESENT: +1 pedal pulses bilateral Vascular exam: PRESENT: normal capillary refill GI/Abdominal exam: PRESENT: soft Rectal exam: PRESENT: deferred Musculoskeletal exam: PRESENT: other - Lumbar dressing dry Neurological exam: PRESENT: alert, awake, oriented to person, oriented to place, oriented to time, oriented to situation. ABSENT: motor sensory deficit Psychiatric exam: PRESENT: appropriate affect, normal mood. ABSENT: homicidal ideation, suicidal ideation Skin exam: PRESENT: dry, intact, warm. ABSENT: cyanosis, rash Results Laboratory Results: 08/06/19 04:50 08/05/19 06:18 08/05/19 08/06/19 06:18 04:50 WBC 8.8 RBC 4.07 Hgb 13.0 Hct 37.1 MCV 91 MCH 31.9 MCHC 35.0 RDW 12.8 Plt Count 201 Seg Neutrophils % 76.6 Potassium 3.8 Impressions: Fluoroscopy 08/05/19 00:00 IMPRESSION: IMAGE(S) OBTAINED DURING PROCEDURE. Lumbar Spine X-Ray 08/05/19 00:00 IMPRESSION: IMAGE(S) OBTAINED DURING PROCEDURE. Status: Imported from PACS Assessment & Plan - Diagnosis (1) Lumbar stenosis Is this a current diagnosis for this admission?: Yes Plan: 64-year-old white female now postop day 1 status post lumbar fusion with an unremarkable postoperative course. Patient be mobilized with physical therapy today and anticipate discharge home tomorrow - Time Time Spent with patient: 15-24 minutes Anticipated discharge: Home with Homehealth Within: within 24 hours
[2019-08-06] MEDS ORDERED: (PENDING PHARMACY ID) (Hydrochlorothiazide [Hydrochlorothiazide] 12.5 MG) PO SCH (08:00)
[2019-08-06] MEDS ORDERED: (PENDING PHARMACY ID) (Valsartan [Diovan] 320 MG) PO SCH (10:00)
[2019-08-06] MEDS ORDERED: VALSARTAN 160 MG TABLET PO SCH (10:00)
[2019-08-06] MEDS: LORATADINE 10 MG TABLET PO SCH (10:21)
[2019-08-06] MEDS: DOCUSATE SODIUM 100 MG CAPSULE PO SCH ×2 (10:21→17:08)
[2019-08-06] MEDS: PREGABALIN 50 MG CAPSULE PO SCH ×2 (10:21→17:08)
[2019-08-06] MEDS: HYDROCHLOROTHIAZIDE 12.5 MG TABLET PO SCH (10:21)
[2019-08-06] MEDS ORDERED: ONDANSETRON 4 MG TAB.RAPDIS PO PRN (10:30)
[2019-08-06] MEDS ORDERED: ACETAMINOPHEN 325 MG TABLET PO PRN (10:30)
[2019-08-07] MEDS: MORPHINE SULFATE 10 MG/ML INJ IV PRN (01:31)
[2019-08-07] MEDS: HYDROCODONE/ACETAMINOPHEN 10-325 MG TABLET PO PRN (03:41)
--- NOTE | 2019-08-07 07:51 | PDOC DISCHARGE SUMMARY ---
General - Admit/Disc Date/PCP Admission Date/Primary Care Provider: 08/05/19 05:22 STEPHEN SOLIS MD Discharge Date: 08/07/19 - Discharge Diagnosis Final Diagnosis: Status post L3-4 and L4-5 lumbar fusion with instrumentation status post central decompression L3-4 and left-sided microdiscectomy. - Assessment Summary: Patient was admitted with severe stenosis L3-4 spinal listhesis L3-4 and L4-5 she underwent decompression at L3-4 and a microdiscectomy left-sided L3-4 as well as interbody fusion and instrumentation at L3-4 and L4-5 did well postoperatively - Additional Information Resuscitation Status: Full Code Discharge Diet: As Tolerated Discharge Activity: Other - No Bending, No pulling or pushing >2 lbs, No driving Referrals: ROSY QUEZADA MD [ASSOCIATE] - (Follow up per Scheduled Appt Aug 12) JOSEPH CALDWELL MD [NO LOCAL MD] - 09/02/19 10:00 am Prescriptions: Oxycodone HCl [Roxicodone] 5 mg PO Q4HP PRN #40 tablet PRN Reason: Severe Pain Acetaminophen [Tylenol 325 mg Tablet] 975 mg PO Q8H #60 tablet Tizanidine HCl [Zanaflex] 2 mg PO Q4HP PRN #60 tablet PRN Reason: Ondansetron [Zofran Odt 4 mg Tablet] 1 - 2 tab PO Q4HP PRN #60 tab.rapdis PRN Reason: Home Medications: Multivitamin [Daily Vitamin] 1 each PO DAILY 08/19/13 Hydrochlorothiazide 12.5 mg PO QAM 03/14/18 Loratadine [Claritin 10 mg Tablet] 10 mg PO QAM 03/14/18 Valsartan [Diovan] 320 mg PO DAILY 03/14/18 Tramadol HCl [Ultram 50 mg Tablet] 100 mg PO Q6HP PRN 07/31/19 Ergocalciferol (Vitamin D2) [Drisdol 50,000 unit (1.25MG) Capsule] 50,000 unit PO SA@1000 08/05/19 Estradiol 1 patch TOP WESA@1000 08/05/19 Acetaminophen [Tylenol 325 mg Tablet] 975 mg PO Q8H #60 tablet 08/07/19 Ondansetron [Zofran Odt 4 mg Tablet] 1 - 2 tab PO Q4HP PRN #60 tab.rapdis 08/07/19 Oxycodone HCl [Roxicodone] 5 mg PO Q4HP PRN #40 tablet 08/07/19 Tizanidine HCl [Zanaflex] 2 mg PO Q4HP PRN #60 tablet 08/07/19 History of Present Illiness History of Present Illness: ALFREDO MORELAND is a 64 year old female Was admitted with L3-4 L4-5 spondylolisthesis and severe stenosis and disc herniation underwent L3-4 L4-5 lumbar fusion with instrumentation and central decompression L3-4 and microdiscectomy left-sided L3-4 Hospital Course Hospital Course: Patient underwent two-level lumbar fusion with decompression at L3-4 and did very well postoperatively and is being discharged to home Physical Exam Vital Signs: Temp Pulse Resp BP Pulse Ox 99.6 F 110 H 17 121/66 96 08/06/19 19:47 08/06/19 19:47 08/06/19 19:47 08/06/19 19:47 08/06/19 19:47 Intake & Output 08/06/19 08/07/19 08/08/19 06:59 06:59 06:59 Intake Total 4350 236 Output Total 2650 Balance 1700 236 Weight 76.2 kg 73.2 kg Exam: Patient's dressing is intact patient reports significant improvement in her left lower extremity is been able to ambulate all the way down the [place] and back and has no calf tenderness pain is controlled grossly overall L2-S1 neurovascularly intact with improvement from comparing preoperatively to now Results Laboratory Results: WBC 8.8 10^3/uL (4.0-10.5) 08/06/19 04:50 RBC 4.07 10^6/uL (3.72-5.28) 08/06/19 04:50 Hgb 13.0 g/dL (12.0-15.5) 08/06/19 04:50 Hct 37.1 % (36.0-47.0) 08/06/19 04:50 MCV 91 fl (80-97) 08/06/19 04:50 MCH 31.9 pg (27.0-33.4) 08/06/19 04:50 MCHC 35.0 g/dL (32.0-36.0) 08/06/19 04:50 RDW 12.8 % (11.5-14.0) 08/06/19 04:50 Plt Count 201 10^3/uL (150-450) 08/06/19 04:50 Lymph % (Auto) 14.2 % (13-45) 08/06/19 04:50 Riley % (Auto) 9.0 % (3-13) 08/06/19 04:50 Eos % (Auto) 0.0 % (0-6) 08/06/19 04:50 Baso % (Auto) 0.2 % (0-2) 08/06/19 04:50 Absolute Neuts (auto) 6.7 10^3/uL (1.7-8.2) 08/06/19 04:50 Absolute Lymphs (auto) 1.3 10^3/uL (0.5-4.7) 08/06/19 04:50 Absolute Monos (auto) 0.8 10^3/uL (0.1-1.4) 08/06/19 04:50 Absolute Eos (auto) 0.0 10^3/uL (0.0-0.6) 08/06/19 04:50 Absolute Basos (auto) 0.0 10^3/uL (0.0-0.2) 08/06/19 04:50 Seg Neutrophils % 76.6 % (42-78) 08/06/19 04:50 Sodium 139.9 mmol/L (137-145) 07/31/19 08:22 Potassium 3.8 mmol/L (3.6-5.0) 08/05/19 06:18 Chloride 96 mmol/L (98-107) L 07/31/19 08:22 Carbon Dioxide 35 mmol/L (22-30) H 07/31/19 08:22 Anion Gap 9 (5-19) 07/31/19 08:22 BUN 16 mg/dL (7-20) 07/31/19 08:22 Creatinine 0.64 mg/dL (0.52-1.25) 07/31/19 08:22 Est GFR ( Amer) > 60 (>60) 07/31/19 08:22 Est GFR (MDRD) Non-Af > 60 (>60) 07/31/19 08:22 Glucose 102 mg/dL (75-110) 07/31/19 08:22 Calcium 9.5 mg/dL (8.4-10.2) 07/31/19 08:22 Urine Color YELLOW 07/31/19 08:15 Urine Appearance SLIGHTLY-CLOUDY 07/31/19 08:15 Urine pH 6.0 (5.0-9.0) 07/31/19 08:15 Ur Specific Steedman 1.015 07/31/19 08:15 Urine Protein NEGATIVE mg/dL (NEGATIVE) 07/31/19 08:15 Urine Glucose (UA) NEGATIVE mg/dL (NEGATIVE) 07/31/19 08:15 Urine Ketones NEGATIVE mg/dL (NEGATIVE) 07/31/19 08:15 Urine Blood NEGATIVE (NEGATIVE) 07/31/19 08:15 Urine Nitrite NEGATIVE (NEGATIVE) 07/31/19 08:15 Urine Bilirubin NEGATIVE (NEGATIVE) 07/31/19 08:15 Urine Urobilinogen NEGATIVE mg/dL (<2.0) 07/31/19 08:15 Ur Leukocyte Esterase NEGATIVE (NEGATIVE) 07/31/19 08:15 Urine WBC (Auto) 5 /HPF 07/31/19 08:15 Urine Bacteria (Auto) TRACE /HPF 07/31/19 08:15 Squamous Epi Cells Auto 7 /HPF 07/31/19 08:15 Urine Mucus (Auto) OCC /LPF 07/31/19 08:15 Urine Ascorbic Acid NEGATIVE (NEGATIVE) 07/31/19 08:15 Impressions: Fluoroscopy 08/05/19 00:00 IMPRESSION: IMAGE(S) OBTAINED DURING PROCEDURE. Lumbar Spine X-Ray 08/05/19 00:00 IMPRESSION: IMAGE(S) OBTAINED DURING PROCEDURE. Plan Plan of Treatment: Patient will follow-up with me next week in the office and we will start formal physical therapy and will evaluate her wound at that point
[2019-08-07 08:15] VITALS: BP 125/87
[2019-08-07] MEDS: HYDROCHLOROTHIAZIDE 12.5 MG TABLET PO SCH (08:24)
[2019-08-07] MEDS: LORATADINE 10 MG TABLET PO SCH (08:24)
[2019-08-08] MEDS ORDERED: ERGOCALCIFEROL (VITAMIN D2) 50000 UNIT (1.25 MG) CAPSULE PO SCH (10:00)
== END 2019-08-07 08:27 | disposition home or self-care (01) | DRG 460 ==
LOC: INOR 05:22 → 5 15:27
PROVIDERS: ADMIT Orthopaedic Surgery; ATTEND Orthopaedic Surgery
PROC: 0SG107J Fusion of 2 or more Lumbar Vertebral Joints with Autologous Tissue Substitute, Posterior Approach, Anterior Column, Open Approach (ICD-10-PCS; 2019-08-05)
PROC: 0QB33ZZ Excision of Left Pelvic Bone, Percutaneous Approach (ICD-10-PCS; 2019-08-05)
PROC: 0SB20ZZ Excision of Lumbar Vertebral Disc, Open Approach (ICD-10-PCS; 2019-08-05)
PROC: 8E0W0CZ Robotic Assisted Procedure of Trunk Region, Open Approach (ICD-10-PCS; 2019-08-05)
PROC: 0SG10AJ Fusion of 2 or more Lumbar Vertebral Joints with Interbody Fusion Device, Posterior Approach, Anterior Column, Open Approach (ICD-10-PCS; principal; 2019-08-05 07:30)
DX: M48.062 Spinal stenosis, lumbar region with neurogenic claudication (principal); G89.4 Chronic pain syndrome; M43.16 Spondylolisthesis, lumbar region; M54.16 Radiculopathy, lumbar region; I10 Essential (primary) hypertension; M54.40 Lumbago with sciatica, unspecified side; M51.36 Other intervertebral disc degeneration, lumbar region; M51.16 Intervertebral disc disorders with radiculopathy, lumbar region; M19.011 Primary osteoarthritis, right shoulder; Z88.7 Allergy status to serum and vaccine; Z91.048 Other nonmedicinal substance allergy status; Z87.891 Personal history of nicotine dependence
CPT/HCPCS: 00630; 36415; 72100; 80048; 81001; 84132; 85025; 87070; C9290; J0690; J1100; J1170; J1644; J2250; J2270; J2405; J2704; J2800; J3010; J3480; J3490; J7060; Q9966; S0119

== ENCOUNTER → 2019-10-14 | Outpatient (CLI) | payer BC, OTHER ==
[2019-10-14 08:34] LABS: ALKALINE PHOSPHATASE 36 U/L (38-126); ANION GAP 6 (5-19); ASPARTATE AMINO TRANSFERASE 25 U/L (14-36); BILIRUBIN,DIRECT 0.2 mg/dL (0.0-0.4); BILIRUBIN,TOTAL 0.3 mg/dL (0.2-1.3); BLOOD UREA NITROGEN 15 mg/dL (7-20); CALCIUM 9.1 mg/dL (8.4-10.2); CARBON DIOXIDE 32 mmol/L (22-30); CHLORIDE 102 mmol/L (98-107); CHOLESTEROL 207.13 mg/dL (0-200); GLUCOSE 99 mg/dL (75-110); POTASSIUM 4.3 mmol/L (3.6-5.0); TOTAL PROTEIN 7.2 g/dL (6.3-8.2); TRIGLYCERIDES 85 mg/dL (<150)
[2019-10-14 08:45] LABS: DIRECT LDL 135 mg/dL (<100)
[2019-10-15 07:37] LABS: CREATININE URINE 225.7 mg/dL (Not Estab.); MICROALBUMIN URINE 6.6 ug/mL (Not Estab.)
== END ==
LOC: OD 07:07
PROVIDERS: ATTEND Physician Assistant
DX: E11.69 Type 2 diabetes mellitus with other specified complication (principal); E78.2 Mixed hyperlipidemia; I10 Essential (primary) hypertension; E55.9 Vitamin D deficiency, unspecified; K91.2 Postsurgical malabsorption, not elsewhere classified; E56.9 Vitamin deficiency, unspecified
CPT/HCPCS: 36415; 80053; 80061; 82043; 82306; 82570; 82607; 82746; 83735; 84443

== ENCOUNTER → 2020-04-07 | Outpatient (CLI) | payer BC, OTHER ==
[2020-04-07 08:37] LABS: ALBUMIN 4.2 g/dL (3.5-5.0); ALKALINE PHOSPHATASE 35 U/L (38-126); ANION GAP 8 (5-19); ASPARTATE AMINO TRANSFERASE 26 U/L (14-36); BILIRUBIN,DIRECT 0.2 mg/dL (0.0-0.4); BILIRUBIN,TOTAL 0.5 mg/dL (0.2-1.3); BLOOD UREA NITROGEN 11 mg/dL (7-20); CALCIUM 8.9 mg/dL (8.4-10.2); CARBON DIOXIDE 31 mmol/L (22-30); CHLORIDE 103 mmol/L (98-107); CHOLESTEROL 189.46 mg/dL (0-200); GLUCOSE 104 mg/dL (75-110); TOTAL PROTEIN 7.1 g/dL (6.3-8.2); TRIGLYCERIDES 160 mg/dL (<150)
[2020-04-07 08:49] LABS: DIRECT LDL 109 mg/dL (<100)
== END ==
LOC: OD 07:07
PROVIDERS: ATTEND Internal Medicine
DX: E11.69 Type 2 diabetes mellitus with other specified complication (principal); E78.2 Mixed hyperlipidemia
CPT/HCPCS: 36415; 80053; 80061; 83036

== ENCOUNTER 2020-08-02 05:27 | Day surgery (SDC) | payer MEDICARE, OTHER ==
[2020-07-29 11:13] LABS: HEMATOCRIT 40.2 % (36.0-47.0); HEMOGLOBIN 14.2 g/dL (12.0-15.5); MEAN CORPUSCULAR HEMOGLOBIN 31.2 pg (27.0-33.4); MEAN CORPUSCULAR HGB CONC 35.2 g/dL (32.0-36.0); MEAN CORPUSCULAR VOLUME 89 fl (80-97); PLATELET COUNT 227 10^3/uL (150-450); RED BLOOD COUNT 4.54 10^6/uL (3.72-5.28); RED CELL DISTRIBUTION WIDTH 13.3 % (11.5-14.0); WHITE BLOOD COUNT 6.3 10^3/uL (4.0-10.5)
[2020-07-29 11:21] LABS: APPEARANCE,URINE CLEAR; BILIRUBIN,URINE NEGATIVE (NEGATIVE); COLOR,URINE STRAW; GLUCOSE, URINE NEGATIVE (NEGATIVE); KETONES,URINE NEGATIVE (NEGATIVE); LEUKOCYTE ESTERASE,URINE NEGATIVE (NEGATIVE); NITRITE,URINE NEGATIVE (NEGATIVE); PROTEIN,URINE NEGATIVE (NEGATIVE); URINE SPECIFIC GRAVITY 1.008; UROBILINOGEN,URINE NEGATIVE mg/dL (<2.0)
--- NOTE | 2020-07-29 11:39 | RADIOLOGY REPORT (SQ) ---
EXAM DESCRIPTION: CHEST 2 VIEWS IMAGES COMPLETED DATE/TIME: 07/29/2020 10:57 am REASON FOR STUDY: PREOP COMPARISON: 09/09/11. EXAM PARAMETERS: NUMBER OF VIEWS: two views TECHNIQUE: Digital Frontal and Lateral radiographic views of the chest acquired. RADIATION DOSE: NA LIMITATIONS: none FINDINGS: LUNGS AND PLEURA: No opacities, masses or pneumothorax. No pleural effusion. MEDIASTINUM AND HILAR STRUCTURES: No masses or contour abnormalities. HEART AND VASCULAR STRUCTURES: Heart normal size. No evidence for failure. BONES: No acute findings. HARDWARE: Surgical clips overlie mediastinum. OTHER: No other significant finding. IMPRESSION: NO ACUTE RADIOGRAPHIC FINDING IN THE CHEST. TECHNICAL DOCUMENTATION: JOB ID: [id number] 2010 [employer]- All Rights Reserved Reading location - IP/workstation name: [email or web address]
[2020-07-29 11:47] LABS: ANION GAP 6 (5-19); BLOOD UREA NITROGEN 18 mg/dL (7-20); CALCIUM 9.2 mg/dL (8.4-10.2); CARBON DIOXIDE 32 mmol/L (22-30); CHLORIDE 101 mmol/L (98-107); GLUCOSE 103 mg/dL (75-110); POTASSIUM 3.8 mmol/L (3.6-5.0)
--- NOTE | 2020-07-29 19:34 | EKG REPORT ---
SEVERITY:- ABNORMAL ECG - SINUS RHYTHM PROBABLE LEFT ATRIAL ABNORMALITY PROBABLE ANTEROSEPTAL INFARCT, AGE INDETERM : Confirmed by: Nay Mendez MD 29-Jul-2020 19:33:27
[~2020-08-02 05:27] MED LIST changes: +CEFAZOLIN 2 GM/D5W RTU 2 GM/50 ML RTUPB IV ONE; +CEFAZOLIN 2 GM/D5W RTU 2 GM/50 ML RTUPB IV PRN; -CEFAZOLIN SODIUM 2 GM in DEXTROSE 5%-WATER 100 ML IV PRN
[2020-08-02] MEDS ORDERED: LIDOCAINE 0.5% INJ-PF (5 MG/ML) 50 ML SDV ONE (06:16)
[2020-08-02] MEDS ORDERED: DEXAMETHASONE SOD PHOSPHATE INJ 4 MG/1 ML VIAL ONE (06:17)
[2020-08-02] MEDS ORDERED: EPHEDRINE SULFATE INJ 50 MG/1 ML AMPULE ONE (06:17)
[2020-08-02] MEDS ORDERED: MIDAZOLAM 2 MG/2 ML INJ ONE (06:17)
[2020-08-02] MEDS ORDERED: FENTANYL CITRATE INJ/PF 100 MCG/2 ML AMPUL ONE (06:17)
[2020-08-02] MEDS ORDERED: ONDANSETRON HCL INJ/PF 4 MG/2 ML SDV ONE (06:17)
[2020-08-02] MEDS ORDERED: PROPOFOL INJ 200 MG/20 ML VIAL IV ONE (06:18)
[2020-08-02] MEDS ORDERED: BUPIVACAINE HCL 0.5 % INJ/PF 30 ML SDV ONE (07:05)
[2020-08-02] MEDS ORDERED: EPINEPHRINE INJ/PF 1 MG/1 ML AMPULE ONE (07:06)
[2020-08-02] MEDS ORDERED: ROPIVACAINE HCL 0.5% INJ/PF (5 MG/1 ML) 30 ML SDV ONE (07:14)
[2020-08-02] MEDS ORDERED: DIPHENHYDRAMINE HCL 50 MG/ML VIAL IV PRN (08:15)
[2020-08-02] MEDS ORDERED: MORPHINE SULFATE 10 MG/ML INJ IV PRN (08:15)
[2020-08-02] MEDS ORDERED: PROMETHAZINE HCL INJ 25 MG/1 ML VIAL IV PRN ×2 (08:15)
[2020-08-02] MEDS ORDERED: ONDANSETRON HCL INJ/PF 4 MG/2 ML SDV IV PRN (08:15)
[2020-08-02] MEDS ORDERED: MEPERIDINE HCL/PF INJ 25 MG/1 ML DISP.SYRIN IV PRN (08:15)
[2020-08-02] MEDS ORDERED: FENTANYL CITRATE INJ/PF 100 MCG/2 ML AMPUL IV PRN ×3 (08:15)
--- NOTE | 2020-08-02 09:27 | Operative Report ---
Operative Report DATE OF SURGERY: 08/02/20 PREOPERATIVE DIAGNOSIS: Right shoulder rotator cuff tear, proximal biceps tendon tear, AC joint arthritis, impingement syndrome POSTOPERATIVE DIAGNOSIS: Same OPERATION: Right shoulder arthroscopy with rotator cuff repair, subacromial decompression with acromioplasty, distal clavicle excision with subpectoralis biceps tenodesis SURGEON: AMBER CAMARGO 1[employer] COORDINATOR: BRIAN BRAVO - Required for patient positioning, retraction for the biceps tenodesis, shoulder manipulation and assistance with rotator cuff repair including suture management and closure of incisions ANESTHESIA: GA COMPLICATIONS: None ESTIMATED BLOOD LOSS: Minimal PROCEDURE: Indication for above procedure: 65-year-old female with longstanding history of right shoulder discomfort. Attempted conservative measures including injections without resolution of her symptoms. Patient had MRI demonstrating with evidence of proximal biceps subluxation/tear anterior rotator cuff tear. We discussed treatment options including operative versus nonoperative intervention of discussing risk benefits joint decision was made to proceed with operative treatment. Procedure In Detail: Patient was seen and evaluated in the preoperative holding area. The RIGHT upper extremity was initialized and marked. Patient received 2g of Ancef IV for bacterial prophylaxis. Patient was taken back to the operative room where transferred to the operative table and placed under general anesthesia. Once they were adequately anesthetized patient placed in the beachchair position. Cervical spine was placed in neutral position all bony prominences were padded including nonoperative upper extremity and bilateral lower extremity. A surgical team debriefing was performed ensuring all instrumentation was available, the surgical procedure was discussed with possible concerns reviewed. The upper extremity was prepped with ChloraPrep draped in a sterile fashion. A timeout was done identifying correct patient, procedure and extremity everyone in attendance agree with this and verbalized no concerns. Posterior portal was established. Arthroscope was introduced into the glenohumeral joint. Via triangulation anterior portal was established. Diagnostic arthroscopy demonstrated proximal biceps tendon tear with degenerative SLAP tear. There was moderate glenohumeral osteoarthritis mainly along the humeral head chondroplasty was performed. Biceps tenotomy was performed to allow for later tenodesis. The labrum was debrided. Rotator cuff was identified there was fraying of the rotator cuff with a spinal needle was inserted in this area was marked for later identification for the subacromial space. Arthroscope was introduced into the subacromial space lateral portal was established. Subacromial decompression was performed. Coracoacromial ligament was elevated but not excised. Acromioplasty was performed with arthroscopic bur.. Via the anterior portal the distal clavicle was identified and 8 mm of distal clavicle was excised with arthroscopic bur. There was no impingement with adduction. Inspection of the rotator cuff demonstrated significant thinning along the anterior portion of the rotator cuff at the level of the previous PDS suture. This was debrided and a small full-thickness tear was identified. The greater tuberosity was debrided down to cancellus bone. A passport cannula was then inserted. With the scorpion suture passer a horizontal mattress suture with fiber tape was placed through the supraspinatus tear. The lateral greater tuberosity was debrided and the sutures were loaded on a swivel lock anchor which was implanted along the lateral row. At completion the rotator cuff was mobilized as you know there is no evidence of residual tearing or defect. Attention then turned to biceps tenodesis. Longitudinal skin incision was made along the inferior third of the pectoralis major. Blunt dissection was performed identifying the inferior border of the pectoralis major. Any peripheral vasculature was carefully coagulated. I then identified the tenotomized long head of the biceps which was retrieved and brought out the wound. The tendon was then secured 2 centimeters distal to the musculotendinous junction with a #2 fiber loop and the remaining diseased portion of the biceps was excised. The Arthrex biceps tenodesis button was then secured to my biceps tendon. Under direct visualization I then cleared an area along the anterior aspect of the humerus and drilled unicortically. The button was then placed into the unicortical hole and the biceps tendon was shuttled to the anterior cortex of the humerus. I then checked stability of the button co nfirming maximal fixation. Utilizing the free needle one limb of the remaining FiberWire was secured to the biceps providing further fixation. The elbow was then placed through range of motion to ensure appropriate tension of the biceps with flexion and extension. The wound was then copiously irrigated with normal saline. Any peripheral vasculature was carefully coagulated with Bovie cautery. Skin was closed a running subcuticular 3-0 Monocryl suture, portal incisions were closed with interrupted Monocryl suture. Wound was dressed with soft dressing. Patient was placed in a abduction sling. Sponge counts, instrument counts, needle counts were correct. Patient was then awoken from anesthesia. Transferred from the operating room table to the operating room stretcher. There was no intraoperative complications patient tolerated procedure well stable to PACU. Postop plan: Patient will follow in the office in 2 weeks for wound check. Will begin physical therapy 5-6 weeks postoperatively.
--- NOTE | 2020-08-02 09:28 | Discharge Summary ---
Discharge Summary (SDC) - Discharge Final Diagnosis: Right Shoulder Rotator Cuff Tear Date of Surgery: 08/02/20 Discharge Date: 08/02/20 Condition: Good Treatment or Instructions: Schedule Follow Up w/ Dr. Parveen Mendieta @ [facility] for Surgery to be seen in 10-14 days or as scheduled [place]: [place]: [place]: May remove dressing on postop day #3, keep incision covered and dry. Cryocuff to shoulder May begin pendulum exercises along w/ hand, wrist and elbow range of motion 4x per day or as tolerated. May remove sling for hygiene purposes otherwise continue it at all times. Stool softener of choice when on pain medication. USE OF [id number] IBUPROFEN: Ibuprofen (Advil, Nuprin, Medipren, Motrin IB) is a medication for fever and pain control. In addition, it has anti- inflammatory effects which may be beneficial, especially in the treatment of injuries. It's best to take ibuprofen with food. Persons with ulcer disease or allergy to aspirin should notify their physician of this before taking ibuprofen. Ibuprofen can be given every four to six hours, for a total of four doses daily. Age Pain or fever dose Antiinflammatory dose 6-8 yr 200 mg (1 tab) 200 mg (1 tab) 9-11 yr 200 mg (1 tab) 200-400 mg (1-2 tab) 11-14 yr 200-400 mg (1-2 tab) 400 mg (2 tab) 15-adult 400 mg (2 tab) 600 mg (3 tab) ORAL NARCOTIC MEDICATION: You have been given a prescription for pain control. This medication is a narcotic. It's best taken with food, as nausea can result if taken on an empty stomach. Don't operate machinery or drive within six hours of taking this medi cation. Do not combine this medicine with alcohol, or with any medication which can cause sedation (such as cold tablets or sleeping pills) unless you get permission from the physician. Narcotics tend to cause constipation. If possible, drink plenty of fluids and eat a diet high in fiber and fruits. Please be aware that prescription narcotics also have the potential for abuse. People become addicted to these medications because of the general sense of wellbeing that they induce. This feeling along with a significant reduction in tension, anxiety, and aggression provides a stimulating seductive quality to these drugs. Once your pain is under control, we encourage you to discard your unused narcotics. Prescriptions: Ketorolac Tromethamine [Toradol 10 mg Tablet] 10 mg PO Q8HP PRN #12 tablet PRN Reason: Oxycodone HCl/Acetaminophen [Percocet 5-325 mg Tablet] 1 tab PO Q6 PRN #25 tab PRN Reason: Referrals: STEPHEN SOLIS MD [Primary Care Provider] - Discharge Diet: As Tolerated Respiratory Treatments at Home: Deep Breathing/Coughing, Incentive Spirometer Discharge Activity: No Lifting Over 10 Pounds, No Lifting/Push/Pulling Report the Following to Your Physician Immediately: Fever over 101 Degrees, Unusual Bleeding, Redness, Swelling, Warmth, Increased Soreness
[2020-08-02] MEDS ORDERED: ONDANSETRON HCL 8 MG TABLET PO PRN (09:45)
[2020-08-02] MEDS ORDERED: OXYCODONE-ACETAMINOPHEN 5-325 MG TABLET PO PRN (09:47)
[2020-08-02 12:27] VITALS: BP 144/82
[2020-08-02] MEDS ORDERED: SUCCINYLCHOLINE CHLORIDE INJ 200 MG/10 ML VIAL ONE (15:51)
== END 2020-08-02 12:06 | disposition home or self-care (01) ==
LOC: OROUT 05:27
PROVIDERS: ATTEND Orthopaedic Surgery
DX: M75.101 Unspecified rotator cuff tear or rupture of right shoulder, not specified as traumatic (principal); S46.211A Strain of muscle, fascia and tendon of other parts of biceps, right arm, initial encounter; S43.431A Superior glenoid labrum lesion of right shoulder, initial encounter; X58.XXXA Exposure to other specified factors, initial encounter; M13.811 Other specified arthritis, right shoulder; M75.41 Impingement syndrome of right shoulder; Z01.812 Encounter for preprocedural laboratory examination; Z20.822 Contact with and (suspected) exposure to COVID-19; I10 Essential (primary) hypertension; G89.4 Chronic pain syndrome; Z79.899 Other long term (current) drug therapy; Z87.891 Personal history of nicotine dependence; Z98.84 Bariatric surgery status
CPT/HCPCS: 93005; 36415 ×2; 84132; 85027; 80048; 81001; 71046; 93010; 29827; 29826; 29824; 23430; C1713 ×2; U0003; J2795; J2250; J3490 ×3; J1100; J0171; J3010; J0330; J2405; J2704; J0690; C9803; 1630; 64415; 76942; 87635